=== PATIENT | female | born 1940 | race Caucasian/White ===

== ENCOUNTER → 2018-07-02 | Outpatient (CLI) | payer MEDICARE, OTHER | END | disposition home or self-care (01) | LOC: RAH 15:42 | PROVIDERS: ATTEND Physical Medicine & Rehabilitation | DX: S33.140A Subluxation of L4/L5 lumbar vertebra, initial encounter (principal); M47.26 Other spondylosis with radiculopathy, lumbar region; M48.07 Spinal stenosis, lumbosacral region; X58.XXXA Exposure to other specified factors, initial encounter; Y93.89 Activity, other specified; Y92.89 Other specified places as the place of occurrence of the external cause; Y99.8 Other external cause status | CPT/HCPCS: 72100 ==

== ENCOUNTER → 2018-07-16 | Outpatient (CLI) | payer MEDICARE, OTHER | END | disposition home or self-care (01) | LOC: RAH 11:55 | PROVIDERS: ATTEND Physical Medicine & Rehabilitation | DX: I67.9 Cerebrovascular disease, unspecified (principal) | CPT/HCPCS: 70551 ==

== ENCOUNTER → 2018-11-21 | Outpatient (CLI) | payer OTHER | END | disposition home or self-care (01) | LOC: RAH 10:50 | PROVIDERS: ATTEND Physical Medicine & Rehabilitation | DX: S33.140A Subluxation of L4/L5 lumbar vertebra, initial encounter (principal); M48.061 Spinal stenosis, lumbar region without neurogenic claudication; M51.16 Intervertebral disc disorders with radiculopathy, lumbar region; X58.XXXA Exposure to other specified factors, initial encounter; Y93.89 Activity, other specified; Y92.89 Other specified places as the place of occurrence of the external cause; Y99.8 Other external cause status | CPT/HCPCS: 72148 ==

== ENCOUNTER 2019-04-29 05:53 | Observation (INO) | payer OTHER ==
[2019-04-25 09:45] VITALS: BP 175/60
[2019-04-25 09:58] LABS: BASOPHILS % (AUTO) 0.6 % (0.0-5.0); EOSINOPHILS % (AUTO) 1.6 % (0.0-8.0); HEMATOCRIT 40.5 % (36-48); MEAN CORPUSCULAR HEMOGLOBIN 29.9 pg (27.0-33.0); MEAN CORPUSCULAR HGB CONC 33.7 g/dL (32.0-36.0); MEAN CORPUSCULAR VOLUME 88.7 fL (79-99); MONOCYTES % (AUTO) 10.9 % (3.0-13.0); NEUTROPHILS % (AUTO) 67.9 % (40.0-77.0); PLATELET COUNT (AUTO) 173 K/uL (130-400); RED BLOOD CELL COUNT(AUTO) 4.56 MIL/uL (4.00-5.50); RED CELL DISTRIBUTION WIDTH 14.1 % (11.0-15.5); WHITE BLOOD COUNT (AUTO) 5.4 K/uL (4.8-10.8)
[2019-04-25 10:04] LABS: CREATININE 0.9 mg/dL (0.5-1.5); POTASSIUM 4.1 mmol/L (3.5-5.1)
[~2019-04-29] VITALS: Ht 160 cm; Wt 65.9 kg
[2019-04-29] VITALS (37 sets, daily range): BP systolic 102–157; BP diastolic 42–69
[~2019-04-29 05:53] MED LIST: BUPR75TA8 PO; CALC600T12 PO; DOCU100T PO; GABA-531 PO; MULT1TAB70 PO; VIT1CAPS5 PO
--- NOTE | 2019-04-29 06:30 | NUR ---
PAIN pt denies pain at rest, has pain when ambulating that radiates down right lower extremity to her toes onset vargas 1 year ago Addendum: 04/29/19 at 0848 by KVNG PRUETT RN RN Amended: Links added.
[2019-04-29] MEDS ORDERED: SUCCINYLCHOLINE 200MG/10ML SYR ONE ×2 (06:48→08:20)
[2019-04-29] MEDS ORDERED: LIDOCAINE PF 2% 5ML ABBOJECT ONE (06:48)
[2019-04-29] MEDS ORDERED: PROPOFOL 10 MG/ML 20ML VIAL IV ONE (06:49)
[2019-04-29] MEDS ORDERED: ONDANSETRON HCL 4 MG/2 ML VIAL ONE (06:49)
[2019-04-29] MEDS ORDERED: DEXAMETHASONE SOD PHOSPHATE 10MG/ML 1ML VIAL ONE ×2 (06:49→06:57)
[2019-04-29] MEDS ORDERED: MIDAZOLAM HCL 1 MG/ML 2ML VIAL ONE (06:49)
[2019-04-29] MEDS ORDERED: NEOSTIGMINE 5MG/5ML SYR IV ONE (06:49)
[2019-04-29] MEDS ORDERED: GLYCOPYRROLATE 1 MG/5 ML SYRINGE ONE (06:49)
[2019-04-29] MEDS ORDERED: ROCURONIUM 10MG/1ML SYR 10 MG/ML ML ONE (06:50)
[2019-04-29] MEDS ORDERED: FENTANYL CITRATE PF 50 MCG/1 ML 2ML VIAL ONE (06:50)
[2019-04-29] MEDS ORDERED: LACTATED RINGERS 1000ML 1,000 ML IV ONE (06:56)
[2019-04-29] MEDS ORDERED: THROMBIN-JMI 20000 UNIT KIT TP ONE (07:09)
[2019-04-29] MEDS ORDERED: BUPIVACAINE/EPI/PF 0.25% 30ML VIAL IJ ONE (07:09)
[2019-04-29] MEDS ORDERED: DURAMORPH PF1 MG/ML 10ML AMP IV ONE (07:09)
[2019-04-29] MEDS ORDERED: BACITRACIN 50,000 UNIT VIAL ONE (07:09)
[2019-04-29] MEDS: CEFAZOLIN SODIUM 1 GM VIAL ONE ×2 (07:18→07:30)
[2019-04-29] MEDS ORDERED: LIDOCAINE HCL 2% JELLY 5 ML ONE (08:19)
[2019-04-29] MEDS ORDERED: LIDOCAINE HCL 4% LTA SOL 4 ML VIAL ONE (08:19)
[2019-04-29] MEDS ORDERED: MELA5CAP PO (09:04)
[2019-04-29] MEDS ORDERED: NOREPINEPHRINE BITARTRATE 1 MG/1 ML ML IV ONE (09:19)
[2019-04-29] MEDS ORDERED: PHENYLEPHRINE HCL 10 MG/ML 1ML VIAL IV ONE (10:04)
[2019-04-29] MEDS ORDERED: MORPHINE SULFATE 2 MG/ML 1ML SYG IVP PRN (10:30)
[2019-04-29] MEDS ORDERED: PROMETHAZINE HCL 25 MG/ML 1ML AMPULE IM PRN (10:30)
[2019-04-29] MEDS ORDERED: HYDROCODONE/ACETAMINOPHEN 5/325 MG TAB PO PRN (10:30)
[2019-04-29] MEDS ORDERED: SODIUM CHLORIDE 0.9% 10 ML VIAL IVP PRN (10:30)
[2019-04-29] MEDS ORDERED: DOCUSATE SODIUM 100 MG CAP PO PRN (10:45)
--- NOTE | 2019-04-29 13:00 | NUR ---
POST SURGERY PATIENT RECEIVED FROM PACU VIA HOSPITAL BED IN STABLE CONDITION. SHE IS AWAKE AND ALERT AND ABLE TO ANSWER ALL QUESTIONS APPROPRIATELY. SHE HAS BEEN ORIENTED TO ROOM AND USE OF CALL LIGHT. BED IS IN LOWEST POSITION AND LOCKED WITH PERSONAL ITEMS WITHIN REACH. DRESSING TO LOWER BACK IS DRY AND INTACT. THERE IS A JOANIE DRAIN TO LOWER BACK WHICH IS NOT COMPRESSED WITH SANGUINEOUS DRAINAGE NOTED IN BULB. THERE IS A 16F KOVACS CATHETER IS IN PLACE AND DRAINING CLEAR YELLOW URINE TO BSD. POST OF V/S HAVE BEEN INITIATED. WILL CONTINUE TO MONITOR.
[2019-04-29] MEDS: GABAPENTIN 300 MG CAPSULE PO SCH ×2 (14:18→20:34)
[2019-04-29] MEDS: DEXAMETHASONE SOD PHOSPHATE 4 MG/ML 1ML VIAL IVP SCH ×2 (14:19→17:35)
[2019-04-29] MEDS: CEFAZOLIN SODIUM 1 GM VIAL IVP SCH ×2 (14:20→22:25)
[2019-04-29] MEDS: LACTATED RINGERS 1000ML 1,000 ML IV SCH ×2 (14:20→23:24)
[2019-04-29] MEDS: MULTIVITAMIN TABLET PO SCH (20:34)
[2019-04-29] MEDS: MULTIVITS,STRESS FORMULA/ZINC 1 TABLET PO SCH (20:34)
[2019-04-29] MEDS: CALCIUM CARBON 500MG CHEW TAB PO SCH (20:34)
--- NOTE | 2019-04-29 20:35 | NUR ---
MEDS PT JUST GOT BACK FROM WALKING AROUND THE FLOOR. PT TOLERATED ACTIVITY WELL. PCP INFORMS PROFESSOR OF GERMAN THAT PT IS A BIT UNSTEADY AND NEEDED MINIMAL HELP. SHIFT ASSESSMENT DONE, PLEASE REFER TO CHART. DUE MEDS ADMINISTERED, TOLERATED WELL. KEPT COMFORTABLE IN BED. CALL LIGHT WITHIN REACH. ENCOURAGED TO REST AND SLEEP. WILL MONITOR PT. Addendum: 04/29/19 at 7572 by RAFI BARRIOS RN RN Amended: Links added.
[2019-04-29] MEDS ORDERED: MELATONIN 5 MG PO SCH (21:00)
--- NOTE | 2019-04-29 22:25 | NUR ---
MEDS PT STILL AWAKE, CLAIMS OF INABILITY TO SLEEP AT THIS TIME. NO COMPLAINTS NOR CONCERNS VERBALIZED. DUE MEDS ADMINISTERED, TOLERATED WELL. KEPT LIGHTS DIMMED. MINIMIZED NOISE. WILL MONITOR PT.
[2019-04-30] MEDS: DEXAMETHASONE SOD PHOSPHATE 4 MG/ML 1ML VIAL IVP SCH ×2 (00:08→05:08)
--- NOTE | 2019-04-30 02:00 | NUR ---
ROUNDS PT RESTING WELL. NO DISTRESS NOTED. KEPT RESTED AND COMFORTABLE. CALL LIGHT WITHIN REACH. WILL MONITOR PT.
[2019-04-30 03:30] VITALS: BP 152/70
[2019-04-30 03:47] VITALS: BP 144/70
--- NOTE | 2019-04-30 05:00 | NUR ---
F/C DUE MEDS ADMINISTERED, TOLERATED WELL. F/C DISCONTINUED WITH CATHETER INTACT. PT DUE TO VOID. INSTRUCTED TO CALL FOR STAFF WHEN IN NEED TO GET TO THE BATHROOM. JOANIE DRAIN DRAINED AND LEFT TO SUCTION. FOR MORE CARE.
[2019-04-30] MEDS: CEFAZOLIN SODIUM 1 GM VIAL IVP SCH (05:08)
--- NOTE | 2019-04-30 05:30 | NUR ---
VOIDED PT ASSISTED BY PCP TO THE RESTROOM AND WAS ABLE TO URINATE WITHOUT ANY PROBLEMS. PCP ASSISTED PT TO WALK AROUND THE FLOOR THEN BACK TO BED. PT TOLERATED ACTIVITY WELL. FOR MORE CARE.
[2019-04-30 08:00] VITALS: BP 131/65
[2019-04-30] MEDS ORDERED: BUPROPION HCL 150 MG TABLET.SA PO SCH (09:00)
[2019-04-30] MEDS: MULTIVITS,STRESS FORMULA/ZINC 1 TABLET PO SCH ×2 (09:00→09:07)
[2019-04-30] MEDS: CALCIUM CARBON 500MG CHEW TAB PO SCH (09:07)
[2019-04-30] MEDS: MULTIVITAMIN TABLET PO SCH (09:09)
[2019-04-30] MEDS: GABAPENTIN 300 MG CAPSULE PO SCH (09:10)
--- NOTE | 2019-04-30 09:58 | NUR ---
CM NOTE Patient in OBS status- scheduled procedure, no triggers to CM, no concerns por pt cut in worker, detailed CM assessment deferred Addendum: 05/02/19 at 0959 by TAMIA GOODMAN RN CM Amended: Links added.
[2019-04-30 12:03] VITALS: BP 125/62
--- NOTE | 2019-04-30 13:51 | NUR ---
SECOND TIME DR. KEYA CANTOR ASSISTANCE WAS PAGED. PENDING CALL BACK
--- NOTE | 2019-04-30 15:40 | NUR ---
PT D/C WITH EDUCATION GIVEN USING trip.me BACK SUCCESSFULLY IV REMOVED, CATHETER INTACT JOANIE DRAIN , CATHETER TIP INTACT NO SIGNS OF INFECTION NOTED PT DENIES SOB OR CHEST PAIN PT 'S FAMILY AT BED SIDE APPT MADE RX GIVEN DR. LAURA ORDERS COPY GIVEN WELL
== END 2019-04-30 16:06 | disposition home or self-care (01) ==
LOC: DAHIP 05:53 → 4BH 12:53
PROVIDERS: ADMIT Neurological Surgery; ATTEND Neurological Surgery
DX: M48.061 Spinal stenosis, lumbar region without neurogenic claudication (principal); M41.86 Other forms of scoliosis, lumbar region; Z79.899 Other long term (current) drug therapy
CPT/HCPCS: 36415; 63047; 63048 ×2; 72020; 80048; 85025; 96374; 96375; 96376 ×2; A4344; A4600; A4649 ×5; A5113; G0378 ×29; J0330 ×2; J0690 ×4; J1100 ×6; J2001; J2250; J2274; J2370; J2405; J2704; J2710; J3010; J3490 ×3; J7030; J7120 ×3

== ENCOUNTER → 2019-11-18 | Outpatient (CLI) | payer OTHER ==
[~2019-11-18] MED LIST changes: +MELA5CAP PO
== END | disposition home or self-care (01) ==
LOC: RAH 08:22
PROVIDERS: ATTEND Physical Medicine & Rehabilitation
DX: M47.815 Spondylosis without myelopathy or radiculopathy, thoracolumbar region (principal); M41.86 Other forms of scoliosis, lumbar region; M51.26 Other intervertebral disc displacement, lumbar region; M48.061 Spinal stenosis, lumbar region without neurogenic claudication
CPT/HCPCS: 72148

== ENCOUNTER → 2020-01-28 | Outpatient (CLI) | payer OTHER | END | disposition home or self-care (01) | LOC: OIH 10:19 | PROVIDERS: ATTEND Neurological Surgery | DX: M47.816 Spondylosis without myelopathy or radiculopathy, lumbar region (principal); M43.16 Spondylolisthesis, lumbar region; M25.78 Osteophyte, vertebrae; M41.86 Other forms of scoliosis, lumbar region | CPT/HCPCS: 72110 ==

== ENCOUNTER 2020-07-06 12:06 | Inpatient (IN) | payer OTHER ==
[~2020-07-06] VITALS: Ht 160 cm; Wt 56.8 kg
[~2020-07-06 12:06] MED LIST changes: -CALC600T12 PO; +CALC600T15 PO; +MULT-660 PO; -MULT1TAB70 PO
[2020-07-06 12:38] LABS: BASOPHILS % (AUTO) 0.4 % (0.0-5.0); EOSINOPHILS % (AUTO) 0.4 % (0.0-8.0); HEMATOCRIT 45.5 % (36-48); LYMPHOCYTES % (AUTO) 9.5 % (21.0-51.0); MEAN CORPUSCULAR HEMOGLOBIN 29.7 pg (27.0-33.0); MEAN CORPUSCULAR HGB CONC 33.2 g/dL (32.0-36.0); MEAN CORPUSCULAR VOLUME 89.4 fL (79-99); MONOCYTES % (AUTO) 9.3 % (3.0-13.0); NEUTROPHILS % (AUTO) 80.1 % (40.0-77.0); PLATELET COUNT (AUTO) 187 K/uL (130-400); RED BLOOD CELL COUNT(AUTO) 5.09 MIL/uL (4.00-5.50); RED CELL DISTRIBUTION WIDTH 14.1 % (11.0-15.5)
[2020-07-06] MEDS ORDERED: METOPROLOL TARTRATE 1 MG/ML 5ML VIAL IV ONE (12:51)
[2020-07-06] MEDS ORDERED: DILTIAZEM HCL 125 MG/25 ML VIAL IV ONE (12:52)
[2020-07-06] MEDS ORDERED: SODIUM CHLORIDE 0.9% 100 ML IV ONE (12:54)
[2020-07-06] MEDS ORDERED: DILTIAZEM 125MG+100 ML NS 125 ML IV SCH (13:00)
[2020-07-06 13:10] LABS: INR 0.97 (0.85-1.15); PARTIAL THROMBOPLASTIN TIME 21.5 SEC (26.3-35.5); PROTHROMBIN TIME 10.5 SEC (9.6-11.6)
[2020-07-06 13:13] LABS: B-TYPE NATRIURETIC PEPTIDE 35 pg/mL (0-100)
[2020-07-06 13:18] LABS: ALBUMIN 4.2 g/dL (3.5-5.0); BILIRUBIN,TOTAL 0.4 mg/dL (0.2-1.0); TOTAL PROTEIN, SERUM 7.5 g/dL (6.0-8.3)
[2020-07-06] MEDS ORDERED: ACETAMINOPHEN 325 MG TAB PO PRN (17:30)
[2020-07-06] MEDS ORDERED: METOPROLOL TARTRATE 1 MG/ML 5ML VIAL IV PRN (17:30)
[2020-07-06] MEDS ORDERED: DILTIAZEM HCL 60 MG TABLET PO PRN (17:30)
[2020-07-06] MEDS ORDERED: ONDANSETRON HCL 4 MG/2 ML VIAL IVP PRN (17:30)
[2020-07-06] MEDS ORDERED: FAMOTIDINE 20MG TAB 20 MG TAB ONE (20:37)
[2020-07-07] VITALS (7 sets, daily range): BP systolic 108–146; BP diastolic 51–88
[2020-07-07] MEDS ORDERED: DILTIAZEM HCL 125 MG/25 ML VIAL IV ONE (00:32)
[2020-07-07] MEDS ORDERED: SODIUM CHLORIDE 0.9% 100 ML IV ONE (00:34)
[2020-07-07 05:29] LABS: BASOPHILS % (AUTO) 0.4 % (0.0-5.0); EOSINOPHILS % (AUTO) 2.1 % (0.0-8.0); HEMATOCRIT 42.7 % (36-48); LYMPHOCYTES % (AUTO) 16.1 % (21.0-51.0); MEAN CORPUSCULAR HGB CONC 33.5 g/dL (32.0-36.0); MEAN CORPUSCULAR VOLUME 89.7 fL (79-99); MONOCYTES % (AUTO) 10.6 % (3.0-13.0); NEUTROPHILS % (AUTO) 70.5 % (40.0-77.0); PLATELET COUNT (AUTO) 191 K/uL (130-400); RED BLOOD CELL COUNT(AUTO) 4.76 MIL/uL (4.00-5.50); RED CELL DISTRIBUTION WIDTH 13.9 % (11.0-15.5); WHITE BLOOD COUNT (AUTO) 6.8 K/uL (4.8-10.8)
[2020-07-07 05:55] LABS: CREATININE 0.8 mg/dL (0.5-1.5); POTASSIUM 3.6 mmol/L (3.5-5.1)
[2020-07-07] MEDS: ENOXAPARIN SODIUM 30 MG/0.3 ML SQ SCH (07:41)
[2020-07-07] MEDS: FAMOTIDINE 20MG TAB 20 MG TAB PO SCH (07:41)
[2020-07-07] MEDS ORDERED: TRAZ-185 PO (07:45)
[2020-07-07] MEDS ORDERED: VILA20TA PO (07:45)
--- NOTE | 2020-07-07 08:00 | NUR ---
ASSESSMENT PT IS AAOX3 DENIES CP DENIES SOB DENIES NV NO COMPLAINTS, RESTING IN BED. HR VIA TELE AFIB 80S, PATIENT ON CARDIZEM GTT. TOLERATED MEAL AND MEDS, CALL LIGHT WITHIN REACH.
[2020-07-07] MEDS ORDERED: METOPROLOL TARTRATE 25 MG TAB PO SCH (09:00)
--- NOTE | 2020-07-07 09:30 | NUR ---
CARDIOLOGY JAZ WHALEN PA-C ROUNDED, SAW PATIENT ORDERS RECEIVED AND CARRIED OUT HR VIA TELE NOW SR 80S
--- NOTE | 2020-07-07 10:00 | NUR ---
RAPID RESPONSE CALLED CAME TO NURSES STATION AND STATES THAT SAID SHE FEELS DIZZY. WHEN I WENT INTO ROOM IMMEDIATELY AFTER CAME TO ME, PT IS SITTING UP IN CHAIR, EYES ROLLED BACK AND NOT RESPONDING. VS MACHINE AT BESIDE AND ATTACHED TO PATIENT AND PATIENT IS NOW AWAKE AND ALERT X3. BP 107/54, HR 80S SR. DR DALY RESPONDED TO RAPID RESPONSE. AT BEDSIDE. ASSISTED PATIENT TO BED, NO COMPLAINTS NOW FROM PATIENT. CONTINUING TO MONITOR.
--- NOTE | 2020-07-07 10:26 | NUR ---
STATUS RESTING IN BED, REMAINS AAOX3 NO COMPLAINTS AT THIS TIME. AT BEDSIDE.
--- NOTE | 2020-07-07 12:30 | NUR ---
STATUS RESTING IN BED NO COMPLAINTS. DENIES CP DENIES SOB DENIES NV. 2D ECHO AT BEDSIDE.
--- NOTE | 2020-07-07 14:30 | NUR ---
DCP-Pt. is independent with ADL's, resides at home w/spouse Ayan and feels safe returning home. Pt. has a walker and cane; no HH, Provider, Oxygen, or DME. Pt. is decision maker and reports this facility has copy of MPOA. Primary is Dr. Vahid Zhao/SULLY and SAIGE/Betsy Shen. Spouse Ayan [phone] will provide transp. home. Addendum: 07/07/20 at 1703 by CONTRERAS DAMIAN Amended: Links added.
--- NOTE | 2020-07-07 17:00 | NUR ---
DOWN TO VQ SCAN VIA WC WITH RAD STAFF
--- NOTE | 2020-07-07 18:26 | NUR ---
RETURNED FROM VQ SCAN AAOX3 NO COMPLAINTS. TELE PACK REAPPLIED
[2020-07-07] MEDS: METOPROLOL TARTRATE 50 MG TAB PO SCH (19:45)
[2020-07-08 03:44] VITALS: BP 149/82
--- NOTE | 2020-07-08 07:15 | NUR ---
ASSESSMENT PT IS AAOX3 DENIES CP DENIES SOB DENIES NV, NO COMPLAINTS AT THIS TIME. RESTING SITTING UPRIGHT IN BED HOB UP AT 30 DEGREES. CALL LIGHT WITHIN REACH, TELE PACK IS ON PATIENT HR VIA TELE SR 69.
[2020-07-08] MEDS: FAMOTIDINE 20MG TAB 20 MG TAB PO SCH (07:49)
[2020-07-08] MEDS: ENOXAPARIN SODIUM 30 MG/0.3 ML SQ SCH (07:49)
[2020-07-08] MEDS: METOPROLOL TARTRATE 50 MG TAB PO SCH (07:49)
[2020-07-08 08:03] VITALS: BP 150/57
[2020-07-08] MEDS ORDERED: CALCIUM CARBONATE 500 MG TABLET PO SCH (09:00)
[2020-07-08] MEDS ORDERED: VILAZODONE 20 MG PO SCH (09:00)
[2020-07-08] MEDS ORDERED: DOCUSATE SODIUM 100 MG CAP PO SCH (09:00)
[2020-07-08] MEDS ORDERED: ASPIRIN 81MG TAB.CHEW PO SCH (09:00)
[2020-07-08 11:21] VITALS: BP 119/60
[2020-07-08] MEDS ORDERED: APIXABAN 2.5 MG TABLET PO SCH (15:30)
[2020-07-08] MEDS ORDERED: METO50 PO (15:36)
[2020-07-08] MEDS ORDERED: APIX2.5T PO (15:36)
[2020-07-08 16:18] VITALS: BP 144/73
--- NOTE | 2020-07-08 17:00 | NUR ---
DISCHARGE PT AND FAMILY VERBALIZE DC INSTRUCTIONS. AGREE TO TAKE METOPROLOL AND ELIQUIS ORDERED. DOSE OF METOPROLOL GIVEN TO PATIENT FOR TONIGHTS DOSE. PT AGREES TO FOLLOW UP WITH DR VASQUEZ ORDERED. PIV REMOVED CATH TIP INTACT. TELE PACK REMOVED. ALL QUESTIONS ANSWERED. AGREES TO BANKRUPTCY PROCESSOR SCRIPTS FROM PHARMACY TODAY ORDERED. DOWN VIA WC TO VEHICLE WITH NURSE AIDE.
[2020-07-08] MEDS ORDERED: TRAZODONE HCL 50 MG TAB PO SCH (21:00)
== END 2020-07-08 17:11 | disposition home or self-care (01) | DRG 309 ==
LOC: EDH 12:06 → EDHIP 14:52 → 4AH 07-07 01:16
PROVIDERS: ADMIT Hospitalist; ATTEND Hospitalist
DX: I48.91 Unspecified atrial fibrillation (principal); D68.69 Other thrombophilia; E44.1 Mild protein-calorie malnutrition; Z68.22 Body mass index [BMI] 22.0-22.9, adult; F32.9 Major depressive disorder, single episode, unspecified; I08.3 Combined rheumatic disorders of mitral, aortic and tricuspid valves; I47.1 Supraventricular tachycardia; Z91.81 History of falling; Z98.1 Arthrodesis status; Z83.6 Family history of other diseases of the respiratory system
CPT/HCPCS: 36415; 71045; 78580; 80048; 80053; 82550; 82948; 83735; 83880; 84439; 84443; 84481; 84484; 85025; 85610; 85730; 93005; 93306; 93356; 99291; A9540; G0378; J1650; J3490

== ENCOUNTER 2020-09-25 10:17 | Emergency (ER) | payer MEDICARE, OTHER ==
[~2020-09-25 10:17] MED LIST changes: +APIX2.5T PO; -BUPR75TA8 PO; +CALC-1125 PO; -CALC600T15 PO; -GABA-531 PO; -MELA5CAP PO; +METO50 PO; +TRAZ-185 PO; +VILA20TA PO
[2020-09-25] MEDS ORDERED: LACTATED RINGERS 1000ML 1,000 ML IV ONE (10:18)
[2020-09-25 13:02] LABS: BASOPHILS % (AUTO) 0.2 % (0.0-5.0); EOSINOPHILS % (AUTO) 0.6 % (0.0-8.0); HEMATOCRIT 32.7 % (36-48); LYMPHOCYTES % (AUTO) 11.3 % (21.0-51.0); MEAN CORPUSCULAR HEMOGLOBIN 30.3 pg (27.0-33.0); MEAN CORPUSCULAR HGB CONC 34.3 g/dL (32.0-36.0); MEAN CORPUSCULAR VOLUME 88.4 fL (79-99); MONOCYTES % (AUTO) 12.3 % (3.0-13.0); NEUTROPHILS % (AUTO) 75.4 % (40.0-77.0); PLATELET COUNT (AUTO) 169 K/uL (130-400); RED CELL DISTRIBUTION WIDTH 13.8 % (11.0-15.5)
[2020-09-25 13:34] LABS: ALBUMIN 3.3 g/dL (3.5-5.0); BILIRUBIN,TOTAL 0.4 mg/dL (0.2-1.0); CREATININE 0.9 mg/dL (0.5-1.5)
[2020-09-25 14:06] LABS: POTASSIUM 2.7 mmol/L (3.5-5.1)
[2020-09-25] MEDS ORDERED: POTASSIUM BICARB/CIT AC 25 MEQ TABLET.EFF ONE (14:25)
== END 2020-09-25 17:48 | disposition home or self-care (01) ==
LOC: EDH 10:17
DX: E86.0 Dehydration (principal); E87.6 Hypokalemia; R19.7 Diarrhea, unspecified; F32.9 Major depressive disorder, single episode, unspecified; Z72.0 Tobacco use
CPT/HCPCS: 36415; 80053; 85025; 96360; 96361; 99283; J7120

== ENCOUNTER → 2022-09-28 | Outpatient (CLI) | payer MEDICARE ==
[~2022-09-28] MED LIST changes: +LIDOCAINE HCL 4% LTA SOL 4 ML VIAL TP ONE
== END | disposition home or self-care (01) ==
LOC: WHH 08:52
PROVIDERS: ATTEND Specialist
DX: L97.812 Non-pressure chronic ulcer of other part of right lower leg with fat layer exposed (principal); I87.2 Venous insufficiency (chronic) (peripheral); I10 Essential (primary) hypertension; I48.91 Unspecified atrial fibrillation; M47.26 Other spondylosis with radiculopathy, lumbar region; M48.07 Spinal stenosis, lumbosacral region; F32.9 Major depressive disorder, single episode, unspecified; F01.A0 Vascular dementia, mild, without behavioral disturbance, psychotic disturbance, mood disturbance, and anxiety; Z79.899 Other long term (current) drug therapy; Z98.1 Arthrodesis status
CPT/HCPCS: 11042; A6456; L3260

== ENCOUNTER → 2022-10-26 | Outpatient (CLI) | payer MEDICARE | END | disposition home or self-care (01) | LOC: WHH 09:02 | PROVIDERS: ATTEND Family Medicine | DX: L97.812 Non-pressure chronic ulcer of other part of right lower leg with fat layer exposed (principal); I87.2 Venous insufficiency (chronic) (peripheral); I10 Essential (primary) hypertension; I48.91 Unspecified atrial fibrillation; M47.26 Other spondylosis with radiculopathy, lumbar region; M48.07 Spinal stenosis, lumbosacral region; F32.9 Major depressive disorder, single episode, unspecified; F01.A0 Vascular dementia, mild, without behavioral disturbance, psychotic disturbance, mood disturbance, and anxiety; Z98.1 Arthrodesis status; Z79.899 Other long term (current) drug therapy | CPT/HCPCS: 11042; A4450; A6456 ==

== ENCOUNTER → 2022-11-23 | Outpatient (CLI) | payer MEDICARE ==
[~2022-11-23] MED LIST changes: -LIDOCAINE HCL 4% LTA SOL 4 ML VIAL TP ONE
== END | disposition home or self-care (01) ==
LOC: WHH 08:05
PROVIDERS: ATTEND Family Medicine
DX: L97.812 Non-pressure chronic ulcer of other part of right lower leg with fat layer exposed (principal); S81.811D Laceration without foreign body, right lower leg, subsequent encounter; I87.2 Venous insufficiency (chronic) (peripheral); I10 Essential (primary) hypertension; I48.91 Unspecified atrial fibrillation; M47.26 Other spondylosis with radiculopathy, lumbar region; M48.07 Spinal stenosis, lumbosacral region; F32.9 Major depressive disorder, single episode, unspecified; F01.A0 Vascular dementia, mild, without behavioral disturbance, psychotic disturbance, mood disturbance, and anxiety; Z98.1 Arthrodesis status; Z79.899 Other long term (current) drug therapy; X58.XXXD Exposure to other specified factors, subsequent encounter
CPT/HCPCS: G0463

== ENCOUNTER → 2023-05-03 | Outpatient (CLI) | payer MEDICARE ==
[~2023-05-03] MED LIST changes: +LIDOCAINE HCL 4% LTA SOL 4 ML VIAL TP ONE
== END | disposition home or self-care (01) ==
LOC: WHH 08:56
PROVIDERS: ATTEND Nurse Practitioner Family
DX: S80.12XA Contusion of left lower leg, initial encounter (principal); S81.802A Unspecified open wound, left lower leg, initial encounter; L97.812 Non-pressure chronic ulcer of other part of right lower leg with fat layer exposed; I87.2 Venous insufficiency (chronic) (peripheral); I48.91 Unspecified atrial fibrillation; I12.9 Hypertensive chronic kidney disease with stage 1 through stage 4 chronic kidney disease, or unspecified chronic kidney disease; N18.30 Chronic kidney disease, stage 3 unspecified; Z85.820 Personal history of malignant melanoma of skin; Z79.899 Other long term (current) drug therapy; X58.XXXA Exposure to other specified factors, initial encounter; Y93.89 Activity, other specified; Y92.89 Other specified places as the place of occurrence of the external cause; Y99.8 Other external cause status
CPT/HCPCS: 11042; 87070; A6248; A4450

== ENCOUNTER → 2023-05-17 | Outpatient (CLI) | payer MEDICARE ==
[~2023-05-17] MED LIST changes: -LIDOCAINE HCL 4% LTA SOL 4 ML VIAL TP ONE
== END | disposition home or self-care (01) ==
LOC: WHH 08:46
PROVIDERS: ATTEND Nurse Practitioner Family
DX: S80.12XD Contusion of left lower leg, subsequent encounter (principal); S81.802D Unspecified open wound, left lower leg, subsequent encounter; L97.812 Non-pressure chronic ulcer of other part of right lower leg with fat layer exposed; I87.2 Venous insufficiency (chronic) (peripheral); I48.91 Unspecified atrial fibrillation; I12.9 Hypertensive chronic kidney disease with stage 1 through stage 4 chronic kidney disease, or unspecified chronic kidney disease; N18.30 Chronic kidney disease, stage 3 unspecified; F32.A Depression, unspecified; Z85.820 Personal history of malignant melanoma of skin; Z79.899 Other long term (current) drug therapy; W22.8XXD Striking against or struck by other objects, subsequent encounter
CPT/HCPCS: 11042

== ENCOUNTER → 2023-05-31 | Outpatient (CLI) | payer MEDICARE ==
[~2023-05-31] MED LIST changes: +LIDOCAINE HCL 4% LTA SOL 4 ML VIAL TP ONE
== END | disposition home or self-care (01) ==
LOC: WHH 08:53
PROVIDERS: ATTEND Nurse Practitioner Family
DX: S80.12XD Contusion of left lower leg, subsequent encounter (principal); S81.802D Unspecified open wound, left lower leg, subsequent encounter; L97.812 Non-pressure chronic ulcer of other part of right lower leg with fat layer exposed; I87.2 Venous insufficiency (chronic) (peripheral); I48.91 Unspecified atrial fibrillation; I12.9 Hypertensive chronic kidney disease with stage 1 through stage 4 chronic kidney disease, or unspecified chronic kidney disease; N18.30 Chronic kidney disease, stage 3 unspecified; F32.A Depression, unspecified; Z85.820 Personal history of malignant melanoma of skin; Z79.899 Other long term (current) drug therapy; W22.8XXD Striking against or struck by other objects, subsequent encounter
CPT/HCPCS: 11042; A6021; A6196; A4450

== ENCOUNTER → 2023-06-28 | Outpatient (CLI) | payer MEDICARE ==
[~2023-06-28] MED LIST changes: -LIDOCAINE HCL 4% LTA SOL 4 ML VIAL TP ONE
== END | disposition home or self-care (01) ==
LOC: WHH 09:01
PROVIDERS: ATTEND Nurse Practitioner Family
DX: S80.12XD Contusion of left lower leg, subsequent encounter (principal); L97.812 Non-pressure chronic ulcer of other part of right lower leg with fat layer exposed; I87.2 Venous insufficiency (chronic) (peripheral); I48.91 Unspecified atrial fibrillation; I12.9 Hypertensive chronic kidney disease with stage 1 through stage 4 chronic kidney disease, or unspecified chronic kidney disease; N18.30 Chronic kidney disease, stage 3 unspecified; F32.A Depression, unspecified; Z85.820 Personal history of malignant melanoma of skin; Z79.899 Other long term (current) drug therapy; W22.8XXD Striking against or struck by other objects, subsequent encounter
CPT/HCPCS: 11042; A4450

== ENCOUNTER → 2024-03-13 | Outpatient (CLI) | payer MEDICARE ==
[2024-03-13 16:38] LABS: CREATININE 1.1 mg/dL (0.5-1.0); POTASSIUM 5.4 mmol/L (3.5-5.1)
== END | disposition home or self-care (01) ==
LOC: LAB 13:48
PROVIDERS: ATTEND Internal Medicine Cardiovascular Disease
DX: I48.0 Paroxysmal atrial fibrillation (principal)
CPT/HCPCS: 36415; 80048

== ENCOUNTER → 2024-03-18 | Outpatient (CLI) | payer MEDICARE | END | disposition home or self-care (01) | LOC: LAB 11:44 | PROVIDERS: ATTEND Internal Medicine Cardiovascular Disease | DX: I48.0 Paroxysmal atrial fibrillation (principal) | CPT/HCPCS: 36415; 84132 ==

== ENCOUNTER 2025-07-05 22:44 | Emergency (ER) | payer MEDICARE ==
[~2025-07-05] VITALS: Ht 172.7 cm; Wt 44.5 kg
--- NOTE | 2025-07-05 22:58 | ERN ---
ED Note History of Present Illness Stated Complaint: FALL Chief Complaint: Trauma Activation Time Seen by MD: 22:46 Dictation: This is an 84-year-old very frail female who has a history of atrial fibrillation on Eliquis lead was in bed and as she got up to walk towards the kitchen she tripped on her loose slippers and went down on the left side and hit the head on the floor. She did not lose consciousness. was concerned about a laceration on her left druze area which was bleeding and brought her in for evaluation. No blurred vision diplopia facial asymmetry motor weakness or seizure activity. No nausea vomitings patient denied any pain whatsoever Temperature 98.2 pulse 133 respirations 16 blood pressure 151/88 with a pulse oximetry of 96% in triage Trauma alert called-14.27 Time of patient arrival-1428 ED physician involved and time of arrival and evaluation-1428 Tier level- 2 Dnc-ysynnrno-np interventions done. Patient just transported by someone by private vehicle and dropped off. Primary survey- Airway intact patient on room air with pulse oximetry of 98% Breathing-normal breath sounds coarse rhonchi bilaterally Circulation-skin warm, distal pulses 2+, capillary refill less than 2 seconds globally Disability-left temporal area face with 1 cm superficial lac with a active oozing. Left parietal scalp 2 cm linear lack Pupils equal round reacting to light GCS- E-5 V-4 M-6-14 Motor function-moves all extremities Sensory-no deficits Exposure Allergies: Coded Allergies: No Known Drug Allergies (Verified Allergy, Unknown, 04/25/19) Uncoded Allergies: sea food (Adverse Reaction, Unknown, diarrhea, vomiting, 04/25/19) Home Meds Active Scripts Apixaban (Eliquis) 2.5 Mg Tablet, 2.5 MG PO BID for 30 Days, #60 TAB Prov:MALIKA METCALF MD 07/08/20 Metoprolol Tartrate (Lopressor 50Mg Tab) 50 Mg Tab, 50 MG PO BID for 30 Days, #60 TAB Prov:MALIKA METCALF MD 07/08/20 Reported Medications Vilazodone Hydrochloride (Viibryd) 20 Mg Tablet, 20 MG PO DAILY, TAB 07/07/20 Trazodone HCl (Trazodone HCl) 50 Mg Tablet, 50 MG PO HS, TAB 07/07/20 Vit A/Vit C/Vit E/Zinc/Copper (Preservision Areds Softgel) 1 Each Capsule, 1 EACH PO BID, CAP 04/25/19 Docusate Sodium (Docusate Sodium) 100 Mg Tablet, 100 MG PO DAILY, TAB 04/25/19 Calcium Carbonate (Calcium) 600 Mg Tablet, 600 MG PO BID, TAB 04/25/19 Multivitamin (Multivitamins) 1 Each Tablet, 0.5 TAB PO BID, TAB 04/25/19 Past Medical History Past Medical History: A-Fib PSYCH History: depression Social History: Negative History: Not Applicable RN Note Reviewed/Agreed w/PFSH: Yes Review of System Dictation Constitutional: Negative for fever,chills, and weight loss Eyes: Negative for injury, pain,redness, and discharge ENT: Negative for injury,pain or swelling Cardiovascular: Negative for chest pain, palpitations, and edema Respiratory: Negative for shortness of breath, cough, and wheezing, Abdomen/GI: Negative for abdominal pain, nausea, vomiting, diarrhea, and constipation Back: Negative for injury and pain : Negative for injury, bleeding and discharge MS/Extremity: Negative for injury and deformity Skin: Negative for rash, and discoloration positive for laceration in the left druze area and parietal area of the scalp Neuro: Negative for headache, weakness, numbness, tingling, and seizure Psych: Negative for suicide ideation, homicidal ideation, and hallucinations Initial Vital Sign VS Vital Signs Date Time Temp Pulse Resp B/P (MAP) Pulse Ox O2 Delivery O2 Flow Rate FiO2 07/05/25 22:46 98.2 133 16 151/88 96 Room Air 07/05/25 22:50 0 21 Physical Exam Dictation Secondary survey Vital signs reviewed General very frail elderly female who is emaciated and a BMI of 15 Head-normocephalic left facial injuries and scared injuries cleaned with saline and address Eyes pupils were equal round reactive to light conjunctiva clear extraocular movements intact no raccoon eyes ENT no reid sign nares patent, oropharynx clear no fluid in the ear canals. Neck no JVD, midline trachea, no cervical spine tenderness, Heart S1-S2 regular no murmurs rubs or gallops Lungs-clear to auscultation bilaterally Chest chest wall nontender no bruising or deformity noted no flail chest Abdomen-no Pearl Laurent's or Oliver's sign, soft nontender no rebound or guarding- Pelvis stable to rock Back-no step-offs or deformities T2 L-spine nontender no perineal hematoma no blood at the meatus Extremities 2+ global pulses, moving all extremities well +5 x 5 muscle strength globally Neurological-cranial nerves 2-12 grossly intact no sensory deficits Rectal-deferred Results (Laboratory/Radiology) Laboratory/Radiology Laboratory Tests Test 07/05/25 22:54 White Blood Count 7.1 K/uL (4.8-10.8) Red Blood Count 4.64 MIL/uL (4.00-5.50) Hemoglobin 13.8 g/dL (12.0-16.0) Hematocrit 42.9 % (36-48) Mean Corpuscular Volume 92.5 fL (79-99) Mean Corpuscular Hemoglobin 29.7 pg (27.0-33.0) Mean Corpuscular Hemoglobin Concent 32.2 g/dL (32.0-36.0) Red Cell Distribution Width 13.4 % (11.0-15.5) Platelet Count 189 K/uL (130-400) Mean Platelet Volume 10.7 fL (7.5-10.5) H Immature Granulocyte % (Auto) 0.1 % (0-1) Neutrophils (%) (Auto) 62.7 % (40.0-77.0) Lymphocytes (%) (Auto) 25.6 % (21.0-51.0) Monocytes (%) (Auto) 10.6 % (3.0-13.0) Eosinophils (%) (Auto) 0.7 % (0.0-8.0) Basophils (%) (Auto) 0.3 % (0.0-5.0) Neutrophils # (Auto) 4.4 K/uL (1.8-7.7) Lymphocytes # (Auto) 1.8 K/uL (1.0-4.8) Monocytes # (Auto) 0.8 K/uL (0.1-1.0) Eosinophils # (Auto) 0.05 K/uL (0.00-0.70) Basophils # (Auto) 0.02 K/uL (0.00-0.20) Absolute Immature Granulocyte (auto 0.01 K/uL (0-1) Nucleated Red Blood Cells 0.0 % (0.0-0.19) Sodium Level 140 mmol/L (136-145) Potassium Level 4.3 mmol/L (3.5-5.1) Chloride Level 101 mmol/L (101-111) Carbon Dioxide Level 31 mmol/L (21-32) Blood Urea Nitrogen 26 mg/dL (7-18) H Creatinine 0.9 mg/dL (0.5-1.0) Glomerular Filtration Rate Calc 63 mL/min (>90) Random Glucose 103 mg/dL (70-105) Total Calcium 9.2 mg/dL (8.5-10.1) Total Creatine Kinase 126 U/L (21-232) # Troponin I High Sensitivity 10.4 ng/L (4-50) Serum Alcohol < 3 mg/dL (0-10) Labs Reviewed?: Yes X-RAY Comment: REASON: fall on the left side ORDERING PHYSICIAN: YOSELYN PERRY MD PROCEDURE: CXR1VW - CHEST 1VW EXAM: CR Chest, 1 View. CLINICAL HISTORY: fall on the left side COMPARISON: July 11, 2020 FINDINGS: LUNGS: There is no mass, infiltrate, or acute pulmonary abnormality. PLEURAL SPACES: No pleural effusion or pneumothorax. MEDIASTINUM: Cardiac size and mediastinal contours within normal limits. BONES: No aggressive appearing osseous lesion seen. IMPRESSION: No acute cardiopulmonary pathology is evident. /[place] DICTATED BY: TRUMAN CRAFT MD DATE: 07/06/2518 ELECTRONICALLY SIGNED BY: TRUMAN CRAFT MD DATE: 07/06/2518 CT Scan Comment: REASON: fall on the left side left temporal lac on Eliquis ORDERING PHYSICIAN: YOSELYN PERRY MD PROCEDURE: HEAD WO - CT HEAD/BRAIN W/O CONTRAST In the rightEXAM: CT Head Without IV contrast. CLINICAL HISTORY: fall on the left side left temporal lac on Eliquis TECHNIQUE: Axial computed tomography images of the head/brain without intravenous contrast. COMPARISON: None provided. FINDINGS: BRAIN: Mild subarachnoid hemorrhage temporal lobe. No mass lesion. No CT evidence for acute territorial infarct. No midline shift or extra-axial collections. Small vessel chronic ischemic changes are seen. VENTRICLES: No hydrocephalus. ORBITS: The orbits are unremarkable. SINUSES AND MASTOIDS: The paranasal sinuses and mastoid air cells are clear. BONES: No fracture. SOFT TISSUES: Unremarkable. IMPRESSION: Acute right temporal lobe subarachnoid hemorrhage /[place] DICTATED BY: TRUMAN CRAFT MD DATE: 07/06/257 ELECTRONICALLY SIGNED BY: TRUMAN CRAFT MD DATE: 07/06/257 REASON: fall on the left side left temporal lac on Eliquis ORDERING PHYSICIAN: YOSELYN PERRY MD PROCEDURE: C SPIN WO - CT CERVICAL SPINE W/O CONTRAST EXAM: CT Cervical Spine Without IV contrast. CLINICAL HISTORY: fall on the left side left temporal lac on Eliquis TECHNIQUE: Axial computed tomography images of the cervical spine without intravenous contrast. Sagittal and coronal reformatted images were generated. COMPARISON: None provided. FINDINGS: ALIGNMENT: There is retrolisthesis of C3 on C4 DEGENERATIVE CHANGES: Multilevel disc narrowing SOFT TISSUES: The prevertebral soft tissues are within normal limits. BONES: No acute fracture or aggressive appearing osseous lesion. IMPRESSION: No acute cervical spine abnormality. /[place] DICTATED BY: TRUMAN CRAFT MD DATE: 07/06/258 ELECTRONICALLY SIGNED BY: TRUMAN CRAFT MD DATE: 07/06/258 ED Course ED Course Orders Procedure Category Date Status Time Alcohol, Blood LAB 07/05/25 Complete 22:50 Cardiac Panel LAB 07/05/25 Complete 22:50 Cbc With Differential LAB 07/05/25 Complete 22:50 Basic Metabolic Panel LAB 07/05/25 Complete 22:50 Urinalysis Profile LAB 07/05/25 Logged 22:50 Ct Head/Brain W/O CT 07/05/25 Resulted Contrast 22:50 Ct Cervical Spine W/O CT 07/05/25 Resulted Contrast 22:50 Chest 1vw RAD 07/05/25 Resulted 22:50 12 Lead Ekg Tracing- EKG 07/05/25 Complete Technical 22:50 Pharmacy PHA 07/05/25 Complete Communication 23:30 Hum Prothrombin PHA 07/05/25 Complete Cplx(Pcc)-Lans 23:45 Thrombin-Jmi 5000 PHA 07/06/25 Complete Unit Kit (Thrombin-Jmi 02:00 Current Medications Medications (Trade) Dose Ordered Sig/Sun Route PRN Reason Start Time Stop Time Status Last Admin Dose Admin Pharmacy Profile Note (Pharmacy Communication) 1 each ONCE MISC 07/05/25 23:30 07/06/25 01:07 DC Thrombin (Thrombin-Jmi 5000 Unit Kit) 5,000 unit ONCE ONCE TP 07/06/25 02:00 07/06/25 02:01 DC Vital Signs Date Time Temp Pulse Resp B/P (MAP) Pulse Ox O2 Delivery O2 Flow Rate FiO2 07/06/25 00:30 98.2 105 17 152/87 98 Room Air* 0 21 07/05/25 23:30 98.2 108 18 142/93 96 Room Air* 0 21 07/05/25 22:50 98.2 119 18 154/85 97 Room Air* 0 21 07/05/25 22:46 98.2 133 16 151/88 96 Room Air We will perform diagnostic labs, advanced imaging and administer medications according to the patient's complaint. Once the results are available, will review and personally interpreted the labs to rule out any acute life- threatening emergency the trach require immediate intervention and treatment. I will then re-evaluate the patient after treatment and diagnostic exams have r eturn to determine whether the patient requires any further testing, can safely be discharged home or need further admission to hospital for additional treatment and evaluation. Medical Decision Making MDM Differential diagnosis: Skull fracture, intracranial bleed, scalp lacerations, contusion cervical fracture This is an 84-year-old very frail female who has a history of atrial fibrillation on Eliquis lead was in bed and as she got up to walk towards the kitchen she tripped on her loose slippers and went down on the left side and hit the head on the floor. She did not lose consciousness. was concerned about a laceration on her left druze area which was bleeding and brought her in for evaluation. No blurred vision diplopia facial asymmetry motor weakness or seizure activity. No nausea vomitings patient denied any pain whatsoever Temperature 98.2 pulse 133 respirations 16 blood pressure 151/88 with a pulse oximetry of 96% in triage 11:20 p.m. labs reviewed CBC showed a hemoglobin of 13.8 platelets 189. BNP 7 shows a BUN and creatinine of 26 and 0.9 with a glucose of 103. 11:[address] scan of the head revealed acute parietal subarachnoid hemorrhage on the left. Stat pharmacy consult for Eliquis reversal-pharmacist indicated they have any equivalent for Andexxa which was ordered Stat consult placed to neurosurgeon Dr. Bynum. No return call after multiple attempts to reach him 1:09 a.m. engine house helper initiated transfer to [facility] and I discussed with Dr. Bradley, trauma surgeon at [facility] who accepted the patient for ER to ER transfer 1:[address] Santa Ohara who accepted the patient - ER to ER transfer. I have updated the patient's spouse periodically on the status of transfer Rationale: Tests considered and ordered secondary to shared decision making include: labs, ECG and radiology Previous outside records reviewed: Old ER visits. Risk of complication and/or morbidity or mortality of patient management: None Medications-Per medication reconciliation Need for hospitalization: Patient does meet criteria for hospitalization. Need for emergency major/minor surgery: No There are no social concerns with this patient. Prescription drug management Prescriptions will include symptomatic care Patient's prior external medical records from other ER visits were reviewed by me as indicated. Prior testing and results from previous visits were reviewed. Prior tests were taken into account with medical decision making and resource utilization, independent historian/historians were used to obtain complete medical history. I independently interpreted the test that were performed, results were reviewed by me and considered findings on radiology if ordered. Medical management and examination interpretation discussions were had by me with other qualified healthcare professionals as indicated for the patient's care. Procedure Procedure Dictation: Left face temporal area irregular laceration oozing from the temporal vein. This was a superficial laceration which could not be sutured however the irregular edges were apposed and Quik clot was placed sterile dressing was applied. Laceration of the left scalp Linear about 3 cm after clearing the hair and cleaning it with a saline 25 cc. Betadine prep was done and the edges were apposed and 4 samantha were placed. No Immediate complications Patient tolerated the procedures well Wound Location: face Wound Length (cm): 2 Wound's Depth, Shape: superficial, irregular Wound Explored: contaminated Irrigated w/ Saline (ccs): 15 Betadine Prep?: Yes Wound Debrided: minimal Sterile Dressing Applied?: Yes Problem List Problem List: (1) Fall from standing (2) Closed head injury (3) Acute spont subarachnoid intracranial hemorrhage assoc w/ coagulopathy (4) History of atrial fibrillation (5) Current use of watermelon harvesting supervisor anticoagulation (6) Left parietal scalp hematoma (7) Laceration of scalp (8) Laceration of skin of face DX & DISP Disposition: Transfer Departure Impression: Primary Impression: Fall from standing Additional Impressions: Closed head injury, Acute spont subarachnoid intracranial hemorrhage assoc w/ coagulopathy, History of atrial fibrillation, Current use of watermelon harvesting supervisor anticoagulation Condition: Stable Additional Instructions: Patient accepted for transfer to [facility] to trauma surgery services Referrals: AUGUSTO ARELLANO MD (PCP) YOSELYN PERRY MD Jul 05, 2025 22:58
--- NOTE | 2025-07-05 23:08 | HMCIMG ---
In the rightEXAM: CT Head Without IV contrast. CLINICAL HISTORY: fall on the left side left temporal lac on Eliquis TECHNIQUE: Axial computed tomography images of the head/brain without intravenous contrast. COMPARISON: None provided. FINDINGS: BRAIN: Mild subarachnoid hemorrhage temporal lobe. No mass lesion. No CT evidence for acute territorial infarct. No midline shift or extra-axial collections. Small vessel chronic ischemic changes are seen. VENTRICLES: No hydrocephalus. ORBITS: The orbits are unremarkable. SINUSES AND MASTOIDS: The paranasal sinuses and mastoid air cells are clear. BONES: No fracture. SOFT TISSUES: Unremarkable. IMPRESSION: Acute right temporal lobe subarachnoid hemorrhage /[place]
[2025-07-05 23:10] LABS: IMMATURE GRANULOCYTE ABSOLUTE 0.01 K/uL (0-1); NUCLEATED RED BLOOD CELLS 0.0 % (0.0-0.19); PLATELET COUNT (AUTO) 189 K/uL (130-400); RED BLOOD CELL COUNT(AUTO) 4.64 MIL/uL (4.00-5.50); RED CELL DISTRIBUTION WIDTH 13.4 % (11.0-15.5); WHITE BLOOD COUNT (AUTO) 7.1 K/uL (4.8-10.8)
--- NOTE | 2025-07-05 23:10 | HMCIMG ---
EXAM: CT Cervical Spine Without IV contrast. CLINICAL HISTORY: fall on the left side left temporal lac on Eliquis TECHNIQUE: Axial computed tomography images of the cervical spine without intravenous contrast. Sagittal and coronal reformatted images were generated. COMPARISON: None provided. FINDINGS: ALIGNMENT: There is retrolisthesis of C3 on C4 DEGENERATIVE CHANGES: Multilevel disc narrowing SOFT TISSUES: The prevertebral soft tissues are within normal limits. BONES: No acute fracture or aggressive appearing osseous lesion. IMPRESSION: No acute cervical spine abnormality. /[place]
--- NOTE | 2025-07-05 23:11 | EKG ---
[facility] Test Date: 2025-07-05 Test Time: 23:06:50 Pat Name: BRANDI WILKES Department: ED Room: Gender: F Location Worker: [id number] : [id number] Requested By: YOSELYN PERRY Order Number: [id number] Reading MD: Tali López Measurements Intervals [place] Rate: 97 P: 48 WI: 129 QRS: 52 QRSD: 76 T: 32 QT: 348 QTc: 438 Interpretive Statements Sinus rhythm Multiple premature complexes, vent & supraven Compared to ECG 07/07/2020 09:12:13 Sinus arrhythmia no longer present Electronically Signed On 07-08-2025 10:14:22 CDT by Tali López Please click the below link to view image of tracing.
--- NOTE | 2025-07-05 23:20 | HMCIMG ---
EXAM: CR Chest, 1 View. CLINICAL HISTORY: fall on the left side COMPARISON: July 11, 2020 FINDINGS: LUNGS: There is no mass, infiltrate, or acute pulmonary abnormality. PLEURAL SPACES: No pleural effusion or pneumothorax. MEDIASTINUM: Cardiac size and mediastinal contours within normal limits. BONES: No aggressive appearing osseous lesion seen. IMPRESSION: No acute cardiopulmonary pathology is evident. /[place]
[2025-07-05 23:22] LABS: CREATININE 0.9 mg/dL (0.5-1.0); GLOMERULAR FILTR. RATE CALC 63 mL/min (>90); GLUCOSE,RANDOM 103 mg/dL (70-105); SODIUM SERUM 140 mmol/L (136-145); UREA NITROGEN, BLOOD 26 mg/dL (7-18)
[2025-07-05 23:29] LABS: CREATINE KINASE, TOTAL 126 U/L (21-232)
[2025-07-05] MEDS ORDERED: PHARMACY COMMUNICATION MISC SCH (23:30)
[2025-07-05 23:35] LABS: ALCOHOL, BLOOD < 3 mg/dL (0-10)
[2025-07-05] MEDS: HUM PROTHROMBIN CPLX(PCC)-LANS 500 UNIT VIAL IV ONE (23:53)
--- NOTE | 2025-07-06 00:03 | NUR ---
DR. DICKINSON CALL PLACED AND MESSAGE LEFT ON CELL PHONE TO [place] [facility] [place]
--- NOTE | 2025-07-06 00:04 | NUR ---
DR. DICKINSON CALL PLACED AND MESSAGE LEFT ON CELL PHONE [place] [facility]
--- NOTE | 2025-07-06 00:05 | NUR ---
[facility] [place] CALL PLACED TO [employer]OT--DR. DICKINSON IS NOT RECRUITMENT OFFICER AT THEIR FACILITY
--- NOTE | 2025-07-06 00:05 | NUR ---
DR. DICKINSON TEXT MESSAGE SENT TO CALL [facility] [place] [facility]
--- NOTE | 2025-07-06 00:08 | NUR ---
DR. DICKINSON TEXT MESSAGE FOR HIM TO CALL [facility] [place] [facility]
--- NOTE | 2025-07-06 00:10 | NUR ---
DR. TEENA MONTAGUE PLACED AND MESSAGE LEFT VOICEMAIL TO CALL [facility] [place]
--- NOTE | 2025-07-06 00:18 | NUR ---
CNO CNO MADE AWARE OF INABILITY TO CONTACT DR. DICKINSON
--- NOTE | 2025-07-06 00:32 | NUR ---
DR. DICKINSON VOICEMAIL LEFT ON CELL PHONE TO CALL [facility] [place] [facility]
--- NOTE | 2025-07-06 01:00 | NUR ---
TRANSFER CALL PLACED TO [facility] CONSERVATION OF RESOURCES COMMISSIONER TO INITIATE TRANSFER FOR TRAUMA, NEUROSURGERY PATIENT
--- NOTE | 2025-07-06 01:21 | NUR ---
TRANSFER PT. ACCEPTED @ 0115 BY SIRENA MOLINA MD FOR TRANSFER TO [facility] [place] BED ASSIGNMENT AT THIS TIME: ER. REPORT: [phone]
--- NOTE | 2025-07-06 01:44 | NUR ---
[facility] CALLED FOR EMERGENT TRANSFER OF MONITORED, TRAUMATIC, NEUROSURGERY PATIENT
[2025-07-06 01:55] VITALS: BP 153/92; PULSE 114; RESP 21; TEMP 98; O2SAT 97
[2025-07-06] MEDS: THROMBIN-JMI 5000 UNIT/VIAL TP ONE (02:02)
== END 2025-07-06 02:09 | disposition short-term general hospital (02) ==
LOC: EDH 22:44
DX: S06.6X0A Traumatic subarachnoid hemorrhage without loss of consciousness, initial encounter (principal); S01.81XA Laceration without foreign body of other part of head, initial encounter; D68.9 Coagulation defect, unspecified; I48.91 Unspecified atrial fibrillation; F32.A Depression, unspecified; Z79.899 Other long term (current) drug therapy; Z79.01 Long term (current) use of anticoagulants; W01.10XA Fall on same level from slipping, tripping and stumbling with subsequent striking against unspecified object, initial encounter; Y93.89 Activity, other specified; Y92.89 Other specified places as the place of occurrence of the external cause; Y99.8 Other external cause status
CPT/HCPCS: 99285; 70450; 71045; 82550; 84484; 80048; 85025; 36415; 72125; 12002; 93005; J7165; J3490

== ENCOUNTER 2025-07-13 13:27 | Emergency (ER) | payer MEDICARE ==
[~2025-07-13] VITALS: Ht 157.5 cm; Wt 45.4 kg
--- NOTE | 2025-07-13 13:39 | ERN ---
ED Note History of Present Illness Stated Complaint: STAPLE REMOVAL Chief Complaint: Suture/Staple Removal Time Seen by MD: 13:29 Dictation: PATIENT IS A 84-YEAR-OLD FEMALE WITH HER HERE WITH COMPLAINTS OF WANTING ARISTIDES REMOVED TO THE LEFT OCCIPUT THAT WERE PLACED APPROXIMATELY 10 DAYS AGO AT [facility] [place]. NO FEVER NO CHILLS NO INFLAMMATION. BEEN TRANSFERRED THERE FOR A BLEED SECONDARY TO FALL. PATIENT'S STATES THEY HAVE A FOLLOW UP WITH YOUR NEUROSURGEON IN THE NEXT SEVERAL DAYS HOWEVER THERE IS THEY JUST NEED THE ARISTIDES REMOVED. Allergies: Coded Allergies: No Known Drug Allergies (Verified Allergy, Unknown, 04/25/19) Uncoded Allergies: sea food (Adverse Reaction, Unknown, diarrhea, vomiting, 04/25/19) Home Meds Active Scripts Apixaban (Eliquis) 2.5 Mg Tablet, 2.5 MG PO BID for 30 Days, #60 TAB Prov:MALIKA METCALF MD 07/08/20 Metoprolol Tartrate (Lopressor 50Mg Tab) 50 Mg Tab, 50 MG PO BID for 30 Days, #60 TAB Prov:MALIKA METCALF MD 07/08/20 Reported Medications Vilazodone Hydrochloride (Viibryd) 20 Mg Tablet, 20 MG PO DAILY, TAB 07/07/20 Trazodone HCl (Trazodone HCl) 50 Mg Tablet, 50 MG PO HS, TAB 07/07/20 Vit A/Vit C/Vit E/Zinc/Copper (Preservision Areds Softgel) 1 Each Capsule, 1 EACH PO BID, CAP 04/25/19 Docusate Sodium (Docusate Sodium) 100 Mg Tablet, 100 MG PO DAILY, TAB 04/25/19 Calcium Carbonate (Calcium) 600 Mg Tablet, 600 MG PO BID, TAB 04/25/19 Multivitamin (Multivitamins) 1 Each Tablet, 0.5 TAB PO BID, TAB 04/25/19 Past Medical History Past Medical History: A-Fib Additional Past Medical Hx: POOR HISTORIAN, 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 Surgical History: Unknown Surgical History Other: POOR HISTORIAN Social History: Negative History: Not Applicable RN Note Reviewed/Agreed w/PFSH: Yes Review of System Dictation CONSTITUTIONAL: NEGATIVE EXCEPT FOR HPI HEAD/FACE: NEGATIVE EXCEPT FOR HPI EENT: NEGATIVE EXCEPT FOR HPI LEFT OCCIPITAL LACERATION WITH FOUR ARISTIDES INTACT RESPIRATORY: NEGATIVE EXCEPT FOR HPI GASTROINTESTINAL/ABDOMINAL: NEGATIVE EXCEPT FOR HPI GENITOURINARY: NEGATIVE EXCEPT FOR HPI MUSCULOSKELETAL: NEGATIVE EXCEPT FOR HPI INTEGUMENTARY: NEGATIVE EXCEPT FOR HPI NEUROLOGICAL/PSYCH: NEGATIVE EXCEPT FOR HPI HEMATOLOGIC/LYMPHATIC: NEGATIVE EXCEPT FOR HPI ALL SYSTEMS NEGATIVE, EXCEPT NOTED ABOVE. APPROXIMATE Initial Vital Sign VS Vital Signs Date Time Temp Pulse Resp B/P (MAP) Pulse Ox O2 Delivery O2 Flow Rate FiO2 07/13/25 13:29 97.9 124 16 110/66 97 Room Air 0 Physical Exam Dictation VITAL SIGNS REVIEWED GENERAL APPEARANCE: ALERT, ORIENTED X 3, NO ACUTE DISTRESS, WELL DEVELOPED, NOURISHED. HEAD AND FACE: LEFT OCCIPITAL LACERATION WITH FOUR ARISTIDES. LACERATION WELL APPROXIMATED NO INFLAMMATION NO DRAINAGE NO SWELLING. EYES: PERRL, PINK CONJUNCTIVAS, EYELID NO TRAUMA, ANTERIOR CHAMBER WITH ARCUS SENILIS. EARS: PINNAS INTACT AND NO SIGNS OF TRAUMA OR ERYTHEMA EAR CANALS CLEAR AND NO DISCHARGE TM NO ERYTHEMA NOSE: NO DISCHARGE, NO BLEEDING. OROPHARYNX: MOUTH NORMAL, TONGUE PINK, PHARYNX CLEAR,NO ERYTHEMA, TONSILS NO EXUDATES, NO ABSCESSES NOTED, MUCOUS MEMBRANE MOIST NECK: SUPPLE, NON-TENDER, NO THYROMEGALY, NO MASSES, NO JVD, NO BRUITS BREAST:DEFERRED CHEST:NO TENDERNESS, NO CREPITUS, NO PARADOXICAL MOVEMENT, NO RETRACTIONS LUNGS:CLEAR, WELL-VENTILATED, SYMMETRIC, NO RALES, NO WHEEZING, NO RHONCHI, NO STRIDOR, GOOD BREATH SOUNDS BILATERALLY HEART: REGULAR RATE, REGULAR RHYTHM, NO MURMUR, NO GALLOPS VASCULAR: NO PERIPHERAL EDEMA, ABDOMEN: SOFT, POSITIVE BOWEL SOUNDS, NONDISTENDED, NO GUARDING, NONTENDER, NO REBOUND, NO MASSES NO HEPATOMEGALY, NO SPLENOMEGALY, NO GONSALEZ'S SIGN, NO HERNIAS. RECTAL: DEFERRED GENITAL: DEFERRED NEUROLOGICAL: NORMAL SPEECH, MOTOR FUNCTION INTACT, SENSORY FUNCTION INTACT MUSCULOSKELETAL: NECK NONTENDER, FULL RANGE OF MOTION, BACK NONTENDER, FULL RANGE OF MOTION, EXTREMITIES: NONTENDER, FULL RANGE OF MOTION SKIN: COLOR PINK, DRY, NO TURGOR, NO RASH, NO LACERATIONS, NO ABRASIONS, NO CONTUSIONS. LYMPHATIC: DEFERRED Results (Laboratory/Radiology) Labs Reviewed?: Yes ED Course ED Course Vital Signs Date Time Temp Pulse Resp B/P (MAP) Pulse Ox O2 Delivery O2 Flow Rate FiO2 07/13/25 13:29 97.9 124 16 110/66 97 Room Air 0 Medical Decision Making MDM MEDICAL DECISION-MAKING BASED ON ENCOUNTER FOR STAPLE REMOVAL FROM SCALP LACERATION FOUR ARISTIDES WERE REMOVED FROM LEFT OCCIPITAL LACERATION. LACERATION WELL APPROXIMATED WITHOUT ERYTHEMA SWELLING TENDERNESS. REFERRED BACK TO HER DOCTOR Procedure Procedure Dictation: 1338/PROCEDURE EXPLAINED TO PATIENT AND THEY AGREED TO PROCEED FOUR ARISTIDES WERE REMOVED INTACT FROM LEFT OCCIPITAL LACERATION LINE. LACERATION LINE REMAINS WELL APPROXIMATED AND IS GRANULATING WELL. NO BLEEDING AND PATIENT TOLERATED WELL DX & DISP Disposition: Discharge Departure Impression: Primary Impression: Encounter for staple removal Additional Impression: Occipital scalp laceration Condition: Stable Additional Instructions: FOLLOW-UP WITH PRIMARY CARE PROVIDER IN 1 TO 2 DAYS. TAKE MEDICATIONS DIRECTED HERE IN THE EMERGENCY ROOM. OKAY TO CONTINUE HOME MEDICATIONS UNLESS OTHERWISE DISCUSSED DURING YOUR VISIT IN THE EMERGENCY ROOM TODAY. RETURN TO YOUR NEAREST EMERGENCY ROOM IF SYMPTOMS WORSEN OR IF THERE IS NO IMPROVEMENT. CALL 911 IF YOU NEED IMMEDIATE ASSISTANCE. TAKE TYLENOL OR MOTRIN [id number] NEEDED AND IF NO CONTRAINDICATIONS ARE PRESENT. INCREASE ORAL HYDRATION. A WOUND CULTURE OR URINE CULTURE WAS ORDERED HERE IN THE EMERGENCY ROOM DEPARTMENT PLEASE FOLLOW-UP WITH PRIMARY CARE PROVIDER AND ADVISE THEM TO GET REPEAT PORTS FROM OUR FACILITY. IF YOU HAD ANY NICOLASA WRAP/SPLINTS THAT WERE APPLIED HERE, PLEASE DO NOT REMOVE THEM UNTIL YOU SEE YOUR PRIMARY CARE OR SPECIALTY. SEE YOUR PRIMARY CARE DOCTOR FOR FOLLOW UP. OKAY TO WASH YOUR HAIR AND DRY THOROUGHLY BUT GENTLY. Referrals: AUGUSTO ARELLANO MD (PCP) Time of Disposition: 13:39 I have reviewed the case, and I agree with, Diagnosis and Plan LEE DURAN Jul 13, 2025 13:39 LUIS BUCK DO Jul 13, 2025 13:43
[2025-07-13 14:25] VITALS: BP 110/65; PULSE 102; RESP 16; TEMP 98; O2SAT 98
== END 2025-07-13 14:37 | disposition home or self-care (01) ==
LOC: EDH 13:27
DX: I69.354 Hemiplegia and hemiparesis following cerebral infarction affecting left non-dominant side (principal); S01.01XD Laceration without foreign body of scalp, subsequent encounter; I48.91 Unspecified atrial fibrillation; Z79.899 Other long term (current) drug therapy; Z79.01 Long term (current) use of anticoagulants; Z48.02 Encounter for removal of sutures; X58.XXXD Exposure to other specified factors, subsequent encounter
CPT/HCPCS: 99282